=== PATIENT | male | born 1970 | race African-American/Black ===

== ENCOUNTER 2021-05-14 19:38 | Inpatient (IN) | payer OTHER ==
[2021-05-15 00:02] VITALS: BMI 24.3
[2021-05-15] MEDS ORDERED: MAGNESIUM HYDROX 2400MG/30ML ORAL SUSPENSION 30 ML CUP PO PRN (02:18)
[2021-05-15] MEDS ORDERED: ONDANSETRON *ODT* 4 MG TABLET SL PRN (02:18)
[2021-05-15] MEDS ORDERED: MAGNESIUM CITRATE 300 ML BOTTLE PO PRN (02:18)
[2021-05-15] MEDS ORDERED: MENTHOL/PHENOL 1 EACH UD MM PRN (02:18)
[2021-05-15] MEDS ORDERED: IBUPROFEN 400 MG TABLET (FP) PO PRN (02:18)
[2021-05-15] MEDS ORDERED: BISMUTH SUBSALICYLATE 524 MG/30 ML PO PRN (02:18)
[2021-05-15] MEDS ORDERED: ACETAMINOPHEN 325 MG TABLET (FP) PO PRN ×2 (02:18)
[2021-05-15] MEDS ORDERED: cloNIDine HCL 0.1 MG TABLET PO PRN (02:18)
[2021-05-15] MEDS ORDERED: METHADONE HCL 10 MG TABLET (FOR DETOX USE ONLY) PO ONE ×2 (02:18→14:00)
[2021-05-15] MEDS ORDERED: MAG HYDROX/AL HYDROX/SIMETH 30 ML UNIT-DOSE CUP PO PRN (02:18)
[2021-05-15] MEDS: PRENATAL VITAMINS W/ FOLIC ACID TABLET (FP) PO SCH (10:37)
[2021-05-15 11:06] LABS: HEMATOCRIT 39.2 % (35.4-49); HEMOGLOBIN 12.7 GM/dL (11.7-16.9); MCH 29.2 pg (25.7-33.7); MCHC 32.5 g/dl (32.0-35.9); MEAN PLT VOLUME 7.9 fl (7.5-11.1); PLATELET COUNT 297 10^3/uL (134-434); RBC 4.35 M/mm3 (4.00-5.60); RDW 12.9 % (11.9-15.9); WHITE BLOOD COUNT 3.6 K/mm3 (4.0-10.0)
[2021-05-15 11:26] LABS: ALBUMIN 3.1 g/dl (3.4-5.0); CALCIUM 8.7 mg/dL (8.5-10.1)
[2021-05-15 11:27] LABS: BLOOD UREA NITROGEN 12.8 mg/dL (7-18)
[2021-05-15 11:30] LABS: CREATININE 1.2 mg/dL (0.55-1.3)
[2021-05-15 11:31] LABS: BILIRUBIN,TOTAL 0.6 mg/dL (0.2-1); TOT PROT 6.6 g/dl (6.4-8.2)
[2021-05-15] MEDS: METHOCARBAMOL 500 MG TABLET PO PRN (14:12)
[2021-05-15] MEDS: risperiDONE 2 MG TABLET PO SCH (22:12)
[2021-05-15] MEDS: MELATONIN 5 MG TABLETS PO SCH (22:12)
[2021-05-15] MEDS: THIAMINE HCL 100 MG TABLET (FP) PO SCH (22:12)
[2021-05-15] MEDS: MIRTAZAPINE 15 MG TABLET (FP) PO SCH (22:12)
[2021-05-16] MEDS ORDERED: METHADONE HCL 5 MG TABLET (FOR DETOX USE ONLY) ONE (09:35)
[2021-05-16] MEDS ORDERED: METHADONE HCL 10 MG TABLET (FOR DETOX USE ONLY) ONE (09:35)
[2021-05-16] MEDS ORDERED: METHADONE (DETOX) 20 MG, METHADONE (DETOX) 5 MG PO ONE (10:00)
[2021-05-16] MEDS: PRENATAL VITAMINS W/ FOLIC ACID TABLET (FP) PO SCH (10:45)
[2021-05-16] MEDS: METHOCARBAMOL 500 MG TABLET PO PRN (10:45)
[2021-05-16] MEDS: MIRTAZAPINE 15 MG TABLET (FP) PO SCH (22:41)
[2021-05-16] MEDS: MELATONIN 5 MG TABLETS PO SCH (22:41)
[2021-05-16] MEDS: risperiDONE 2 MG TABLET PO SCH (22:41)
[2021-05-16] MEDS: THIAMINE HCL 100 MG TABLET (FP) PO SCH (22:41)
[2021-05-17] MEDS ORDERED: METHADONE HCL 10 MG TABLET (FOR DETOX USE ONLY) PO ONE (10:00)
[2021-05-17] MEDS: PRENATAL VITAMINS W/ FOLIC ACID TABLET (FP) PO SCH (10:13)
[2021-05-17] MEDS: risperiDONE 2 MG TABLET PO SCH (22:40)
[2021-05-17] MEDS: MIRTAZAPINE 15 MG TABLET (FP) PO SCH (22:40)
[2021-05-17] MEDS: THIAMINE HCL 100 MG TABLET (FP) PO SCH (22:40)
[2021-05-17] MEDS: MELATONIN 5 MG TABLETS PO SCH (23:26)
[2021-05-18] MEDS ORDERED: METHADONE HCL 10 MG TABLET (FOR DETOX USE ONLY) ONE (08:54)
[2021-05-18] MEDS ORDERED: METHADONE HCL 5 MG TABLET (FOR DETOX USE ONLY) ONE (08:54)
[2021-05-18] MEDS ORDERED: METHADONE (DETOX) 10 MG, METHADONE (DETOX) 5 MG PO ONE (10:00)
[2021-05-18] MEDS: PRENATAL VITAMINS W/ FOLIC ACID TABLET (FP) PO SCH (10:28)
[2021-05-18] MEDS: THIAMINE HCL 100 MG TABLET (FP) PO SCH (22:37)
[2021-05-18] MEDS: MIRTAZAPINE 15 MG TABLET (FP) PO SCH (22:37)
[2021-05-18] MEDS: MELATONIN 5 MG TABLETS PO SCH (22:37)
[2021-05-18] MEDS: risperiDONE 2 MG TABLET PO SCH (22:37)
[2021-05-19] MEDS ORDERED: METHADONE HCL 10 MG TABLET (FOR DETOX USE ONLY) PO ONE (10:00)
[2021-05-19] MEDS: PRENATAL VITAMINS W/ FOLIC ACID TABLET (FP) PO SCH (10:43)
[2021-05-19] MEDS: risperiDONE 2 MG TABLET PO SCH (22:38)
[2021-05-19] MEDS: MIRTAZAPINE 15 MG TABLET (FP) PO SCH (22:38)
[2021-05-19] MEDS: THIAMINE HCL 100 MG TABLET (FP) PO SCH (22:38)
[2021-05-19] MEDS: MELATONIN 5 MG TABLETS PO SCH (22:39)
[2021-05-20] MEDS ORDERED: METHADONE HCL 5 MG TABLET (FOR DETOX USE ONLY) PO ONE (06:00)
[2021-05-20 06:58] VITALS: BP 117/81; PULSE 80; TEMP 97.5
[2021-05-20] MEDS: PRENATAL VITAMINS W/ FOLIC ACID TABLET (FP) PO SCH (10:26)
== END 2021-05-20 13:59 | disposition other institution (70) | DRG 773 ==
LOC: YASAS 19:38 → Y6N 05-15 02:32 → Y3W 05-20 11:40 → Y6N 05-20 11:40
PROVIDERS: ADMIT Allergy & Immunology; ATTEND Allergy & Immunology
PROC: HZ2ZZZZ Detoxification Services for Substance Abuse Treatment (ICD-10-PCS; principal; 2021-05-15)
DX: F11.23 Opioid dependence with withdrawal (principal); F14.20 Cocaine dependence, uncomplicated; F12.20 Cannabis dependence, uncomplicated; F19.282 Other psychoactive substance dependence with psychoactive substance-induced sleep disorder; F31.9 Bipolar disorder, unspecified; Z87.891 Personal history of nicotine dependence; Z56.0 Unemployment, unspecified; Z59.0 Homelessness
CPT/HCPCS: 36415; 80053; 82962; 85027; 86780; 93005; 93010; C9803; U0003; U0005

== ENCOUNTER 2021-05-20 15:05 | Inpatient (IN) | payer OTHER ==
[2021-05-20] MEDS ORDERED: MENTHOL/PHENOL 1 EACH UD MM PRN (15:39)
[2021-05-20] MEDS ORDERED: LOPERAMIDE HCL 2 MG CAPSULE PO PRN (15:39)
[2021-05-20] MEDS ORDERED: hydrOXYzine PAMOATE 25 MG CAPSULE (FP) PO PRN (15:39)
[2021-05-20] MEDS ORDERED: ACETAMINOPHEN 325 MG TABLET (FP) PO PRN (15:39)
[2021-05-20] MEDS ORDERED: MAG HYDROX/AL HYDROX/SIMETH 30 ML UNIT-DOSE CUP PO PRN (15:39)
[2021-05-20] MEDS ORDERED: IBUPROFEN 400 MG TABLET (FP) PO PRN (15:39)
[2021-05-20] MEDS ORDERED: MAGNESIUM HYDROX 2400MG/30ML ORAL SUSPENSION 30 ML CUP PO PRN (15:39)
[2021-05-20] MEDS ORDERED: MAGNESIUM CITRATE 300 ML BOTTLE PO PRN (15:39)
[2021-05-20] MEDS ORDERED: guaiFENesin 200 MG/10 ML 10 ML UNIT-DOSE CUPS PO PRN (15:39)
[2021-05-20] MEDS ORDERED: P-EPHED 60MG/TRIPROLIDI 2.5MG TABLET PO PRN (15:39)
[2021-05-20] MEDS: MELATONIN 5 MG TABLETS PO SCH (21:55)
[2021-05-20] MEDS: THIAMINE HCL 100 MG TABLET (FP) PO SCH (21:55)
[2021-05-20] MEDS ORDERED: MIRTAZAPINE 15 MG TABLET (FP) PO ONE (22:00)
[2021-05-20] MEDS ORDERED: risperiDONE 2 MG TABLET PO ONE (22:00)
[2021-05-21] MEDS: PRENATAL VITAMINS W/ FOLIC ACID TABLET (FP) PO SCH (10:49)
[2021-05-21] MEDS: MELATONIN 5 MG TABLETS PO SCH (21:04)
[2021-05-21] MEDS: THIAMINE HCL 100 MG TABLET (FP) PO SCH (21:04)
[2021-05-22] MEDS: PRENATAL VITAMINS W/ FOLIC ACID TABLET (FP) PO SCH (10:22)
[2021-05-22] MEDS: THIAMINE HCL 100 MG TABLET (FP) PO SCH (21:31)
[2021-05-22] MEDS: MELATONIN 5 MG TABLETS PO SCH (21:31)
[2021-05-23] MEDS: PRENATAL VITAMINS W/ FOLIC ACID TABLET (FP) PO SCH (10:18)
[2021-05-23] MEDS: MELATONIN 5 MG TABLETS PO SCH (21:11)
[2021-05-23] MEDS: THIAMINE HCL 100 MG TABLET (FP) PO SCH (21:12)
[2021-05-24] MEDS: PRENATAL VITAMINS W/ FOLIC ACID TABLET (FP) PO SCH (09:54)
[2021-05-24] MEDS: THIAMINE HCL 100 MG TABLET (FP) PO SCH (21:42)
[2021-05-24] MEDS: SUVOREXANT 10 MG TABLET PO PRN (21:43)
[2021-05-25] MEDS: PRENATAL VITAMINS W/ FOLIC ACID TABLET (FP) PO SCH (10:09)
[2021-05-25] MEDS: BACITRACIN 0.9 GM PACKET TP SCH (18:49)
[2021-05-25] MEDS: THIAMINE HCL 100 MG TABLET (FP) PO SCH (21:09)
[2021-05-25] MEDS: SUVOREXANT 10 MG TABLET PO PRN (21:09)
[2021-05-26] MEDS: PRENATAL VITAMINS W/ FOLIC ACID TABLET (FP) PO SCH ×2 (10:26→10:28)
[2021-05-26] MEDS: BACITRACIN 0.9 GM PACKET TP SCH ×2 (10:26→10:28)
[2021-05-26] MEDS: THIAMINE HCL 100 MG TABLET (FP) PO SCH (21:51)
[2021-05-26] MEDS: SUVOREXANT 10 MG TABLET PO PRN (21:52)
[2021-05-27] MEDS: PRENATAL VITAMINS W/ FOLIC ACID TABLET (FP) PO SCH (10:19)
[2021-05-27] MEDS: BACITRACIN 0.9 GM PACKET TP SCH (10:20)
[2021-05-27] MEDS: THIAMINE HCL 100 MG TABLET (FP) PO SCH (21:25)
[2021-05-27] MEDS: SUVOREXANT 10 MG TABLET PO PRN (21:25)
[2021-05-28] MEDS: PRENATAL VITAMINS W/ FOLIC ACID TABLET (FP) PO SCH (10:22)
[2021-05-28] MEDS: BACITRACIN 0.9 GM PACKET TP SCH (10:22)
[2021-05-28] MEDS: THIAMINE HCL 100 MG TABLET (FP) PO SCH (21:44)
[2021-05-28] MEDS: SUVOREXANT 10 MG TABLET PO PRN (21:44)
[2021-05-29 07:07] VITALS: BP 156/89; PULSE 71; TEMP 98.6
[2021-05-29] MEDS: PRENATAL VITAMINS W/ FOLIC ACID TABLET (FP) PO SCH (10:17)
[2021-05-29] MEDS: BACITRACIN 0.9 GM PACKET TP SCH (10:18)
== END 2021-05-29 14:15 | disposition home or self-care (01) | DRG 772 ==
LOC: YASAS 15:05 → Y3W 15:06
PROVIDERS: ADMIT Allergy & Immunology; ATTEND Allergy & Immunology
PROC: HZ42ZZZ Group Counseling for Substance Abuse Treatment, Cognitive-Behavioral (ICD-10-PCS; principal; 2021-05-20)
DX: F11.20 Opioid dependence, uncomplicated (principal); F14.20 Cocaine dependence, uncomplicated; F12.20 Cannabis dependence, uncomplicated; F31.9 Bipolar disorder, unspecified; F20.9 Schizophrenia, unspecified; S71.101A Unspecified open wound, right thigh, initial encounter; X58.XXXA Exposure to other specified factors, initial encounter; Y93.9 Activity, unspecified; Y92.9 Unspecified place or not applicable